=== PATIENT | male | born 1975 ===

== ENCOUNTER 2016-09-18 03:55 | Emergency (ER) | payer SELFPAY ==
--- NOTE | ~2016-09-18 | ER ---
PATIENT'S NAME: [facility]ECTOR [facility] AGE: 41 Y [address] ROOM: [place] [address] LOCATION: [facility] ADMIT DATE: 09/18/2016 ER/Outpatient Report DISCHARGE DATE: 09/18/2016 FAMILY PHYSICIAN: Physician, Unknown ATTENDING PHYSICIAN: Preston Agustin Time of Arrival: Admission date and time documented on the medical record. Time of Evaluation: I saw the patient at 0405 hours. CHIEF COMPLAINT: Medical clearance. HISTORY OF PRESENT ILLNESS: This patient is a 41-year-old male, who was brought to the emergency room by [facility] for medical clearance. Apparently, he has been arrested for alleged assault. The patient states he has some shortness of breath and has a history of a blood clot in his right lower leg. Currently, no chest pain or abdominal pain. No headache or eyes, ears, nose, throat, neck, or spine pain. The patient states that he drank 1 beer tonight. He has not taken any drugs. Does have MRSA positive. No neuro changes, psych issues, or endocrine problems. No recent colds, coughs, flus, fever, chills, or sweats. HOME MEDICATIONS: None. ALLERGIES: NONE. SOCIAL HISTORY: Nonsmoker. Does drink beer usually about a 6-pack a week. SIGNIFICANT PAST MEDICAL HISTORY: MRSA positive. OPERATIONS: None. REVIEW OF SYSTEMS: All systems reviewed by me are negative with the exception of those discussed in the history of present illness. PHYSICAL EXAMINATION: VITAL SIGNS: Temperature 97.5, pulse 93, respirations 22, and O2 saturation on room air is 99%. HEAD: Normocephalic. PATIENT'S NAME: HECTOR [facility]LL[facility] AGE: 41 Y [address] ROOM: [place] [address] LOCATION: [facility] ADMIT DATE: 09/18/2016 ER/Outpatient Report DISCHARGE DATE: 09/18/2016 FAMILY PHYSICIAN: Physician, Unknown ATTENDING PHYSICIAN: Preston Agustin EYES, EARS, NOSE, AND THROAT: Clear. Mucous membranes moist. NECK: Negative. SPINE: Negative. LUNGS: Clear. Good air flow. No rales, rhonchi, or wheezes. HEART: Regular. Pulses palpable. ABDOMEN: Soft, nondistended, nontender. Good bowel tones. No organomegaly or abnormal mass palpable. No CVA tenderness. EXTREMITIES: The patient has a little bit of swelling in the right lower leg, healing scar on the dorsal aspect of his right knee. NEUROVASCULAR: Appears to be intact. SKIN: Clear. IMPRESSION: Medical clearance. PLAN: The patient dismissed from the emergency room. Observation. Activity as tolerated. Continue present home care. Follow up with personal physician as scheduled. They are to watch his right lower leg for any changes and his respiratory status. Do not see any acute changes at this time. MD ANDREW RAMESH/modl /[id number] d: 09/18/16510 t: 09/24/16 0613, OUTPATIENT REPORT
== END 2016-09-18 04:19 | disposition disaster alternative care site (69) ==
LOC: GMED 03:55
DX: Z02.89 Encounter for other administrative examinations (principal)